=== PATIENT | female | born 2000 | race Caucasian/White ===

== ENCOUNTER 2021-10-04 | Emergency (ER) | payer MEDICAID ==
[~2021-10-04] VITALS: Ht 167.6 cm; Wt 69.3 kg
[2021-10-04] MEDS ORDERED: HYDROCODONE/ACETAMINOPHEN 5/325MG TABLET PO ONE (00:30)
[2021-10-04 01:33] VITALS: BP 135/69
== END 2021-10-04 01:51 | disposition home or self-care (01) ==
LOC: ER
DX: S06.9X0A Unspecified intracranial injury without loss of consciousness, initial encounter (principal); X58.XXXA Exposure to other specified factors, initial encounter; Y93.89 Activity, other specified; Y92.89 Other specified places as the place of occurrence of the external cause; Y99.8 Other external cause status
CPT/HCPCS: 81025; 99284